=== PATIENT | male | born 1955 | race African-American/Black ===

== ENCOUNTER → 2016-11-27 | Outpatient (CLI) | payer OTHER ==
[~2016-11-27] MED LIST: BACL10TA PO; CEPH500 PO; DOXY100C PO; FURO40 PO; MELO-273 PO; POTA10TA PO; SIMV-260 PO
[2016-11-27 14:04] VITALS: BP 147/79
== END | disposition home or self-care (01) ==
LOC: HBOWC 14:02
PROVIDERS: ATTEND Emergency Medicine
DX: I87.2 Venous insufficiency (chronic) (peripheral) (principal); L97.321 Non-pressure chronic ulcer of left ankle limited to breakdown of skin; I11.0 Hypertensive heart disease with heart failure; I50.9 Heart failure, unspecified; E66.8 Other obesity; L84 Corns and callosities; B35.1 Tinea unguium; M20.42 Other hammer toe(s) (acquired), left foot; M21.42 Flat foot [pes planus] (acquired), left foot; M21.41 Flat foot [pes planus] (acquired), right foot
CPT/HCPCS: 97597

== ENCOUNTER → 2016-12-04 | Outpatient (CLI) | payer OTHER ==
[2016-12-04 13:59] VITALS: BP 128/62
== END | disposition home or self-care (01) ==
LOC: HBOWC 13:52
PROVIDERS: ATTEND Emergency Medicine
DX: I87.2 Venous insufficiency (chronic) (peripheral) (principal); L97.321 Non-pressure chronic ulcer of left ankle limited to breakdown of skin; L84 Corns and callosities; I11.0 Hypertensive heart disease with heart failure; I50.9 Heart failure, unspecified; E66.8 Other obesity; B35.1 Tinea unguium; M21.42 Flat foot [pes planus] (acquired), left foot; M21.41 Flat foot [pes planus] (acquired), right foot

== ENCOUNTER → 2016-12-12 | Outpatient (CLI) | payer OTHER ==
[2016-12-12 09:38] VITALS: BP 144/90
== END | disposition home or self-care (01) ==
LOC: HBOWC 09:08
PROVIDERS: ATTEND Emergency Medicine
DX: I87.2 Venous insufficiency (chronic) (peripheral) (principal); L97.311 Non-pressure chronic ulcer of right ankle limited to breakdown of skin; I10 Essential (primary) hypertension; E66.9 Obesity, unspecified; B35.1 Tinea unguium; L84 Corns and callosities; M20.42 Other hammer toe(s) (acquired), left foot
CPT/HCPCS: 97597

== ENCOUNTER → 2016-12-19 | Outpatient (CLI) | payer OTHER ==
[~2016-12-19] MED LIST changes: +LIDOCAINE HCL 2% 5 ML JELLY TP ONE; +TRIAMCINOLONE 0.1% 15 GM OINTMENT TP ONE
[2016-12-19 15:30] VITALS: BP 130/69
== END | disposition home or self-care (01) ==
LOC: HBOWC 14:53
PROVIDERS: ATTEND Emergency Medicine
DX: I87.2 Venous insufficiency (chronic) (peripheral) (principal); L97.321 Non-pressure chronic ulcer of left ankle limited to breakdown of skin; I10 Essential (primary) hypertension; L84 Corns and callosities; E66.9 Obesity, unspecified; B35.1 Tinea unguium; M21.42 Flat foot [pes planus] (acquired), left foot; M21.41 Flat foot [pes planus] (acquired), right foot
CPT/HCPCS: 97597

== ENCOUNTER → 2017-01-02 | Outpatient (CLI) | payer OTHER ==
[~2017-01-02] MED LIST changes: -TRIAMCINOLONE 0.1% 15 GM OINTMENT TP ONE
[2017-01-02 11:31] VITALS: BP 148/90
== END | disposition home or self-care (01) ==
LOC: HBOWC 11:22
PROVIDERS: ATTEND Emergency Medicine Undersea and Hyperbaric Medicine
DX: I87.2 Venous insufficiency (chronic) (peripheral) (principal); L97.321 Non-pressure chronic ulcer of left ankle limited to breakdown of skin; I11.0 Hypertensive heart disease with heart failure; I50.9 Heart failure, unspecified; I48.91 Unspecified atrial fibrillation; L84 Corns and callosities; B35.1 Tinea unguium; E66.8 Other obesity; M79.675 Pain in left toe(s)
CPT/HCPCS: 11055; 97597

== ENCOUNTER → 2017-02-01 | Outpatient (CLI) | payer OTHER ==
[~2017-02-01] MED LIST changes: -CEPH500 PO; -LIDOCAINE HCL 2% 5 ML JELLY TP ONE; -SIMV-260 PO; +SIMV20 PO
[2017-02-01 10:15] VITALS: BP 149/72
== END | disposition home or self-care (01) ==
LOC: HBOWC 09:59
PROVIDERS: ATTEND Emergency Medicine
DX: I87.2 Venous insufficiency (chronic) (peripheral) (principal); L97.321 Non-pressure chronic ulcer of left ankle limited to breakdown of skin; I11.0 Hypertensive heart disease with heart failure; I50.9 Heart failure, unspecified; E66.8 Other obesity; I48.91 Unspecified atrial fibrillation; L84 Corns and callosities; B35.1 Tinea unguium
CPT/HCPCS: 97597

== ENCOUNTER → 2017-02-15 | Outpatient (CLI) | payer OTHER ==
[~2017-02-15] MED LIST changes: +CEPH500 PO; +SIMV-260 PO; -SIMV20 PO
[2017-02-15 10:19] VITALS: BP 123/71
== END | disposition home or self-care (01) ==
LOC: HBOWC 09:59
PROVIDERS: ATTEND Emergency Medicine
DX: L97.321 Non-pressure chronic ulcer of left ankle limited to breakdown of skin (principal); I48.91 Unspecified atrial fibrillation; L84 Corns and callosities; I11.0 Hypertensive heart disease with heart failure; I50.9 Heart failure, unspecified; E66.8 Other obesity; B35.1 Tinea unguium; I87.2 Venous insufficiency (chronic) (peripheral)
CPT/HCPCS: 97597

== ENCOUNTER → 2017-02-22 | Outpatient (CLI) | payer OTHER ==
[~2017-02-22] MED LIST changes: -CEPH500 PO; -SIMV-260 PO; +SIMV20 PO
[2017-02-22 14:07] VITALS: BP 138/85
== END | disposition home or self-care (01) ==
LOC: HBOWC 13:27
PROVIDERS: ATTEND Emergency Medicine
DX: I87.2 Venous insufficiency (chronic) (peripheral) (principal); L97.321 Non-pressure chronic ulcer of left ankle limited to breakdown of skin; I50.9 Heart failure, unspecified; I11.0 Hypertensive heart disease with heart failure; E66.8 Other obesity; I48.91 Unspecified atrial fibrillation; L84 Corns and callosities; B35.1 Tinea unguium
CPT/HCPCS: 15271; 97597

== ENCOUNTER → 2017-02-28 | Outpatient (CLI) | payer OTHER ==
[~2017-02-28] MED LIST changes: +CEPH500 PO; +SIMV-260 PO; -SIMV20 PO
[2017-02-28 13:47] VITALS: BP 142/77
== END | disposition home or self-care (01) ==
LOC: HBOWC 13:35
PROVIDERS: ATTEND Emergency Medicine
DX: I87.2 Venous insufficiency (chronic) (peripheral) (principal); L97.321 Non-pressure chronic ulcer of left ankle limited to breakdown of skin; L84 Corns and callosities; I11.0 Hypertensive heart disease with heart failure; I50.9 Heart failure, unspecified; E66.9 Obesity, unspecified; I48.91 Unspecified atrial fibrillation; B35.1 Tinea unguium
CPT/HCPCS: 15271

== ENCOUNTER → 2017-03-07 | Outpatient (CLI) | payer OTHER ==
[~2017-03-07] MED LIST changes: -DOXY100C PO
[2017-03-07 15:08] VITALS: BP 140/73
== END | disposition home or self-care (01) ==
LOC: HBOWC 14:37
PROVIDERS: ATTEND Emergency Medicine
DX: I87.2 Venous insufficiency (chronic) (peripheral) (principal); L97.321 Non-pressure chronic ulcer of left ankle limited to breakdown of skin; I11.0 Hypertensive heart disease with heart failure; I50.9 Heart failure, unspecified; E66.8 Other obesity; B35.1 Tinea unguium; I48.91 Unspecified atrial fibrillation; L84 Corns and callosities
CPT/HCPCS: 97597

== ENCOUNTER → 2017-03-14 | Outpatient (CLI) | payer OTHER ==
[2017-03-14 15:08] VITALS: BP 134/78
== END | disposition home or self-care (01) ==
LOC: HBOWC 14:50
PROVIDERS: ATTEND Emergency Medicine
DX: I87.2 Venous insufficiency (chronic) (peripheral) (principal); L97.321 Non-pressure chronic ulcer of left ankle limited to breakdown of skin; L84 Corns and callosities; I48.91 Unspecified atrial fibrillation; I11.0 Hypertensive heart disease with heart failure; I50.9 Heart failure, unspecified; E66.9 Obesity, unspecified
CPT/HCPCS: C5271; Q4172; 15271; 97597

== ENCOUNTER → 2017-03-21 | Outpatient (CLI) | payer OTHER ==
[~2017-03-21] MED LIST changes: +DOXY100C PO
[2017-03-21 15:37] VITALS: BP 120/74
== END | disposition home or self-care (01) ==
LOC: HBOWC 14:43
PROVIDERS: ATTEND Emergency Medicine
DX: I87.2 Venous insufficiency (chronic) (peripheral) (principal); L97.321 Non-pressure chronic ulcer of left ankle limited to breakdown of skin; L84 Corns and callosities; I11.0 Hypertensive heart disease with heart failure; I50.9 Heart failure, unspecified; I48.91 Unspecified atrial fibrillation; E66.9 Obesity, unspecified; B35.1 Tinea unguium

== ENCOUNTER → 2017-03-26 | Outpatient (CLI) | payer OTHER ==
[~2017-03-26] MED LIST changes: -DOXY100C PO
[2017-03-26 16:05] VITALS: BP 133/78
== END | disposition home or self-care (01) ==
LOC: HBOWC 14:38
PROVIDERS: ATTEND Emergency Medicine
DX: I87.2 Venous insufficiency (chronic) (peripheral) (principal); L97.321 Non-pressure chronic ulcer of left ankle limited to breakdown of skin; I11.0 Hypertensive heart disease with heart failure; I50.9 Heart failure, unspecified; E66.9 Obesity, unspecified; B35.1 Tinea unguium; I48.91 Unspecified atrial fibrillation; L84 Corns and callosities

== ENCOUNTER → 2017-04-02 | Outpatient (CLI) | payer OTHER ==
[2017-04-02 11:48] VITALS: BP 117/67
[2017-04-02 11:52] VITALS: BP 117/67
== END | disposition home or self-care (01) ==
LOC: HBOWC 10:53
PROVIDERS: ATTEND Emergency Medicine
DX: I87.2 Venous insufficiency (chronic) (peripheral) (principal); L97.321 Non-pressure chronic ulcer of left ankle limited to breakdown of skin; I11.0 Hypertensive heart disease with heart failure; I50.9 Heart failure, unspecified; L84 Corns and callosities; I48.91 Unspecified atrial fibrillation; E66.8 Other obesity; B35.1 Tinea unguium
CPT/HCPCS: C5271; Q4172

== ENCOUNTER → 2017-04-09 | Outpatient (CLI) | payer OTHER ==
[2017-04-09 11:41] VITALS: BP 120/75
== END | disposition home or self-care (01) ==
LOC: HBOWC 10:59
PROVIDERS: ATTEND Emergency Medicine Undersea and Hyperbaric Medicine
DX: I87.2 Venous insufficiency (chronic) (peripheral) (principal); L97.321 Non-pressure chronic ulcer of left ankle limited to breakdown of skin; I11.0 Hypertensive heart disease with heart failure; I50.9 Heart failure, unspecified; I48.91 Unspecified atrial fibrillation; E66.9 Obesity, unspecified; L84 Corns and callosities; B35.1 Tinea unguium

== ENCOUNTER → 2017-04-17 | Outpatient (CLI) | payer OTHER ==
[~2017-04-17] MED LIST changes: +CIPR-278 PO
[2017-04-17 09:16] VITALS: BP 133/78
== END | disposition home or self-care (01) ==
LOC: HBOWC 08:59
PROVIDERS: ATTEND Emergency Medicine
DX: I87.2 Venous insufficiency (chronic) (peripheral) (principal); L97.321 Non-pressure chronic ulcer of left ankle limited to breakdown of skin; I11.0 Hypertensive heart disease with heart failure; I50.9 Heart failure, unspecified; E66.9 Obesity, unspecified; B35.1 Tinea unguium; I48.91 Unspecified atrial fibrillation; L84 Corns and callosities
CPT/HCPCS: C5271; Q4172

== ENCOUNTER → 2017-04-26 | Outpatient (CLI) | payer OTHER ==
[~2017-04-26] MED LIST changes: +DOXY100C PO; +ENAL10 PO; +SULF-168 PO; +SULF1TAB42 PO; +TYL3 PO
[2017-04-26 09:31] VITALS: BP 133/74
== END | disposition home or self-care (01) ==
LOC: HBOWC 09:06
PROVIDERS: ATTEND Emergency Medicine
DX: I87.2 Venous insufficiency (chronic) (peripheral) (principal); L97.321 Non-pressure chronic ulcer of left ankle limited to breakdown of skin; L84 Corns and callosities; I11.0 Hypertensive heart disease with heart failure; I50.9 Heart failure, unspecified; E66.9 Obesity, unspecified; B35.1 Tinea unguium; I48.91 Unspecified atrial fibrillation

== ENCOUNTER → 2017-05-15 | Outpatient (CLI) | payer OTHER ==
[~2017-05-15] MED LIST changes: -CEPH500 PO; +DICL250 PO; -DOXY100C PO; -ENAL10 PO; -SULF-168 PO; -SULF1TAB42 PO; +TRIAMCINOLONE 0.1% 15 GM CREAM TP ONE; -TYL3 PO
[2017-05-15 10:42] VITALS: BP 146/72
== END | disposition home or self-care (01) ==
LOC: HBOWC 09:53
PROVIDERS: ATTEND Emergency Medicine
DX: I87.2 Venous insufficiency (chronic) (peripheral) (principal); L97.321 Non-pressure chronic ulcer of left ankle limited to breakdown of skin; L84 Corns and callosities; I11.0 Hypertensive heart disease with heart failure; I50.9 Heart failure, unspecified; E66.9 Obesity, unspecified; B35.1 Tinea unguium; I48.91 Unspecified atrial fibrillation
CPT/HCPCS: 97597

== ENCOUNTER → 2017-05-22 | Outpatient (CLI) | payer OTHER ==
[~2017-05-22] MED LIST changes: -CIPR-278 PO; -TRIAMCINOLONE 0.1% 15 GM CREAM TP ONE
[2017-05-22 10:39] VITALS: BP 142/92
== END | disposition home or self-care (01) ==
LOC: HBOWC 10:18
PROVIDERS: ATTEND Emergency Medicine
DX: I87.2 Venous insufficiency (chronic) (peripheral) (principal); L97.321 Non-pressure chronic ulcer of left ankle limited to breakdown of skin; L84 Corns and callosities; I11.0 Hypertensive heart disease with heart failure; I50.9 Heart failure, unspecified; E66.9 Obesity, unspecified; B35.1 Tinea unguium; I48.91 Unspecified atrial fibrillation
CPT/HCPCS: 97597

== ENCOUNTER → 2017-05-29 | Outpatient (CLI) | payer OTHER ==
[2017-05-29 12:33] VITALS: BP 139/66
== END | disposition home or self-care (01) ==
LOC: HBOWC 10:56
PROVIDERS: ATTEND Emergency Medicine
DX: I87.2 Venous insufficiency (chronic) (peripheral) (principal); L97.321 Non-pressure chronic ulcer of left ankle limited to breakdown of skin; L84 Corns and callosities; I11.0 Hypertensive heart disease with heart failure; I50.9 Heart failure, unspecified; E66.9 Obesity, unspecified; B35.1 Tinea unguium; I48.91 Unspecified atrial fibrillation
CPT/HCPCS: 15271; Q4172

== ENCOUNTER → 2017-06-05 | Outpatient (CLI) | payer OTHER ==
[2017-06-05 12:02] VITALS: BP 119/68
== END | disposition home or self-care (01) ==
LOC: HBOWC 10:34
PROVIDERS: ATTEND Emergency Medicine
DX: I87.2 Venous insufficiency (chronic) (peripheral) (principal); L97.321 Non-pressure chronic ulcer of left ankle limited to breakdown of skin; I11.0 Hypertensive heart disease with heart failure; I50.9 Heart failure, unspecified; E66.9 Obesity, unspecified; I48.91 Unspecified atrial fibrillation; L84 Corns and callosities; M21.42 Flat foot [pes planus] (acquired), left foot; M21.41 Flat foot [pes planus] (acquired), right foot

== ENCOUNTER → 2017-06-12 | Outpatient (CLI) | payer OTHER ==
[2017-06-12 14:06] VITALS: BP 126/59
== END | disposition home or self-care (01) ==
LOC: HBOWC 13:42
PROVIDERS: ATTEND Emergency Medicine
DX: L97.321 Non-pressure chronic ulcer of left ankle limited to breakdown of skin (principal); I87.2 Venous insufficiency (chronic) (peripheral); L30.9 Dermatitis, unspecified; I11.0 Hypertensive heart disease with heart failure; I50.9 Heart failure, unspecified; L84 Corns and callosities; M21.42 Flat foot [pes planus] (acquired), left foot; M21.41 Flat foot [pes planus] (acquired), right foot; E66.9 Obesity, unspecified; Z68.1 Body mass index [BMI] 19.9 or less, adult; I48.91 Unspecified atrial fibrillation; B35.1 Tinea unguium
CPT/HCPCS: 15271; Q4172

== ENCOUNTER → 2017-06-19 | Outpatient (CLI) | payer OTHER ==
[2017-06-19 09:50] VITALS: BP 141/78
== END | disposition home or self-care (01) ==
LOC: HBOWC 09:05
PROVIDERS: ATTEND Emergency Medicine
DX: I87.2 Venous insufficiency (chronic) (peripheral) (principal); L97.821 Non-pressure chronic ulcer of other part of left lower leg limited to breakdown of skin; L84 Corns and callosities; I11.0 Hypertensive heart disease with heart failure; I50.9 Heart failure, unspecified; E66.9 Obesity, unspecified; B35.1 Tinea unguium; I48.91 Unspecified atrial fibrillation; Z68.1 Body mass index [BMI] 19.9 or less, adult

== ENCOUNTER → 2017-07-10 | Outpatient (CLI) | payer OTHER ==
[~2017-07-10] MED LIST changes: +LIDOCAINE HCL 2% 5 ML JELLY TP ONE; +MELO-107 PO; -MELO-273 PO
[2017-07-10 11:33] VITALS: BP 135/82
== END | disposition home or self-care (01) ==
LOC: HBOWC 10:55
PROVIDERS: ATTEND Emergency Medicine
DX: I87.2 Venous insufficiency (chronic) (peripheral) (principal); L97.321 Non-pressure chronic ulcer of left ankle limited to breakdown of skin; L84 Corns and callosities; E66.9 Obesity, unspecified; I11.0 Hypertensive heart disease with heart failure; I50.9 Heart failure, unspecified; B35.1 Tinea unguium; I48.91 Unspecified atrial fibrillation; Z68.1 Body mass index [BMI] 19.9 or less, adult
CPT/HCPCS: 11042

== ENCOUNTER → 2017-07-20 | Outpatient (CLI) | payer OTHER ==
[2017-07-20 11:30] VITALS: BP 146/92
== END | disposition home or self-care (01) ==
LOC: HBOWC 10:49
PROVIDERS: ATTEND Emergency Medicine
DX: S91.002D Unspecified open wound, left ankle, subsequent encounter (principal); I87.8 Other specified disorders of veins; I11.0 Hypertensive heart disease with heart failure; I50.9 Heart failure, unspecified; E66.9 Obesity, unspecified; I48.91 Unspecified atrial fibrillation; Z68.1 Body mass index [BMI] 19.9 or less, adult; X58.XXXD Exposure to other specified factors, subsequent encounter
CPT/HCPCS: 97597

== ENCOUNTER → 2017-07-31 | Outpatient (CLI) | payer OTHER ==
[2017-07-31 10:15] VITALS: BP 149/77
== END | disposition home or self-care (01) ==
LOC: HBOWC 09:50
PROVIDERS: ATTEND Emergency Medicine
DX: I87.2 Venous insufficiency (chronic) (peripheral) (principal); L97.321 Non-pressure chronic ulcer of left ankle limited to breakdown of skin; I11.0 Hypertensive heart disease with heart failure; I50.9 Heart failure, unspecified; E66.9 Obesity, unspecified; I48.91 Unspecified atrial fibrillation; L84 Corns and callosities; B35.1 Tinea unguium; Z68.1 Body mass index [BMI] 19.9 or less, adult
CPT/HCPCS: 11042

== ENCOUNTER → 2017-08-14 | Outpatient (CLI) | payer OTHER ==
[~2017-08-14] MED LIST changes: -LIDOCAINE HCL 2% 5 ML JELLY TP ONE
[2017-08-14 10:52] VITALS: BP 131/77
== END | disposition home or self-care (01) ==
LOC: HBOWC 10:06
PROVIDERS: ATTEND Emergency Medicine
DX: I87.2 Venous insufficiency (chronic) (peripheral) (principal); L97.321 Non-pressure chronic ulcer of left ankle limited to breakdown of skin; I11.0 Hypertensive heart disease with heart failure; I50.9 Heart failure, unspecified; I48.91 Unspecified atrial fibrillation; E66.9 Obesity, unspecified; Z68.1 Body mass index [BMI] 19.9 or less, adult

== ENCOUNTER → 2018-06-03 | Outpatient (CLI) | payer OTHER ==
[~2018-06-03] MED LIST changes: +INDO50 PO
[2018-06-03 11:28] VITALS: BP 153/90
== END | disposition home or self-care (01) ==
LOC: HBOWC 11:03
PROVIDERS: ATTEND Surgery Plastic and Reconstructive Surgery
DX: L97.321 Non-pressure chronic ulcer of left ankle limited to breakdown of skin (principal); I87.2 Venous insufficiency (chronic) (peripheral); I11.0 Hypertensive heart disease with heart failure; I50.9 Heart failure, unspecified; I48.91 Unspecified atrial fibrillation; E66.9 Obesity, unspecified; Z68.1 Body mass index [BMI] 19.9 or less, adult
CPT/HCPCS: 11042

== ENCOUNTER → 2018-06-10 | Outpatient (CLI) | payer OTHER ==
[~2018-06-10] MED LIST changes: -BACL10TA PO; -DICL250 PO; -MELO-107 PO; -SIMV-260 PO
[2018-06-10 10:49] VITALS: BP 125/79
== END | disposition home or self-care (01) ==
LOC: HBOWC 10:31
PROVIDERS: ATTEND Surgery Plastic and Reconstructive Surgery
DX: L97.321 Non-pressure chronic ulcer of left ankle limited to breakdown of skin (principal); I87.2 Venous insufficiency (chronic) (peripheral); I11.0 Hypertensive heart disease with heart failure; I50.9 Heart failure, unspecified; I48.91 Unspecified atrial fibrillation; E66.9 Obesity, unspecified; Z68.1 Body mass index [BMI] 19.9 or less, adult
CPT/HCPCS: 11043

== ENCOUNTER → 2018-06-17 | Outpatient (CLI) | payer OTHER ==
[~2018-06-17] MED LIST changes: +LIDOCAINE HCL 2% 5 ML JELLY TP ONE
[2018-06-17 10:21] VITALS: BP 149/93
== END | disposition home or self-care (01) ==
LOC: HBOWC 10:10
PROVIDERS: ATTEND Surgery Plastic and Reconstructive Surgery
DX: L97.321 Non-pressure chronic ulcer of left ankle limited to breakdown of skin (principal); I87.2 Venous insufficiency (chronic) (peripheral); I11.0 Hypertensive heart disease with heart failure; I50.9 Heart failure, unspecified; I48.91 Unspecified atrial fibrillation; E66.9 Obesity, unspecified; Z68.1 Body mass index [BMI] 19.9 or less, adult
CPT/HCPCS: 11043

== ENCOUNTER → 2018-07-01 | Outpatient (CLI) | payer OTHER ==
[~2018-07-01] MED LIST changes: +LIDOCAINE 2% 5 ML JELLY TP ONE; -LIDOCAINE HCL 2% 5 ML JELLY TP ONE
[2018-07-01 10:24] VITALS: BP 143/77
== END | disposition home or self-care (01) ==
LOC: HBOWC 10:13
PROVIDERS: ATTEND Surgery Plastic and Reconstructive Surgery
DX: L97.321 Non-pressure chronic ulcer of left ankle limited to breakdown of skin (principal); I87.2 Venous insufficiency (chronic) (peripheral); I11.0 Hypertensive heart disease with heart failure; I50.9 Heart failure, unspecified; I48.91 Unspecified atrial fibrillation; E66.9 Obesity, unspecified; Z68.1 Body mass index [BMI] 19.9 or less, adult
CPT/HCPCS: 11043

== ENCOUNTER → 2018-07-08 | Outpatient (CLI) | payer OTHER ==
[2018-07-08 10:31] VITALS: BP 144/87
== END | disposition home or self-care (01) ==
LOC: HBOWC 10:08
PROVIDERS: ATTEND Surgery Plastic and Reconstructive Surgery
DX: L97.321 Non-pressure chronic ulcer of left ankle limited to breakdown of skin (principal); I87.2 Venous insufficiency (chronic) (peripheral); I11.0 Hypertensive heart disease with heart failure; I50.9 Heart failure, unspecified; I48.91 Unspecified atrial fibrillation; E66.9 Obesity, unspecified; Z68.1 Body mass index [BMI] 19.9 or less, adult
CPT/HCPCS: 11043

== ENCOUNTER → 2018-07-15 | Outpatient (CLI) | payer OTHER ==
[~2018-07-15] MED LIST changes: +LIDOCAINE 2% 5 ML JELLY ONE; -LIDOCAINE 2% 5 ML JELLY TP ONE
[2018-07-15 11:15] VITALS: BP 135/92
== END | disposition home or self-care (01) ==
LOC: HBOWC 11:04
PROVIDERS: ATTEND Surgery Plastic and Reconstructive Surgery
DX: L97.321 Non-pressure chronic ulcer of left ankle limited to breakdown of skin (principal); I11.0 Hypertensive heart disease with heart failure; I50.9 Heart failure, unspecified; I87.2 Venous insufficiency (chronic) (peripheral); E66.9 Obesity, unspecified; I48.91 Unspecified atrial fibrillation; Z68.1 Body mass index [BMI] 19.9 or less, adult
CPT/HCPCS: 11043

== ENCOUNTER → 2018-07-22 | Outpatient (CLI) | payer OTHER ==
[~2018-07-22] MED LIST changes: -LIDOCAINE 2% 5 ML JELLY ONE
[2018-07-22 11:20] VITALS: BP 146/90
== END | disposition home or self-care (01) ==
LOC: HBOWC 10:00
PROVIDERS: ATTEND Surgery Plastic and Reconstructive Surgery
DX: L97.321 Non-pressure chronic ulcer of left ankle limited to breakdown of skin (principal); I87.2 Venous insufficiency (chronic) (peripheral); I11.0 Hypertensive heart disease with heart failure; I50.9 Heart failure, unspecified; I48.91 Unspecified atrial fibrillation; E66.9 Obesity, unspecified; Z68.1 Body mass index [BMI] 19.9 or less, adult
CPT/HCPCS: 11043

== ENCOUNTER → 2018-07-29 | Outpatient (CLI) | payer OTHER ==
[2018-07-29 12:15] VITALS: BP 142/58
== END | disposition home or self-care (01) ==
LOC: HBOWC 09:57
PROVIDERS: ATTEND Surgery Plastic and Reconstructive Surgery
DX: L97.321 Non-pressure chronic ulcer of left ankle limited to breakdown of skin (principal); I87.2 Venous insufficiency (chronic) (peripheral); I11.0 Hypertensive heart disease with heart failure; I50.9 Heart failure, unspecified; I48.91 Unspecified atrial fibrillation; E66.9 Obesity, unspecified; Z68.1 Body mass index [BMI] 19.9 or less, adult
CPT/HCPCS: 11042; 11043

== ENCOUNTER → 2018-08-07 | Outpatient (CLI) | payer OTHER ==
[~2018-08-07] MED LIST changes: +LIDOCAINE 2% 5 ML JELLY TP ONE
[2018-08-07 10:10] VITALS: BP 136/88
== END | disposition home or self-care (01) ==
LOC: HBOWC 09:56
PROVIDERS: ATTEND Internal Medicine
DX: L97.321 Non-pressure chronic ulcer of left ankle limited to breakdown of skin (principal); I87.2 Venous insufficiency (chronic) (peripheral); I11.0 Hypertensive heart disease with heart failure; I50.9 Heart failure, unspecified; I48.91 Unspecified atrial fibrillation; E66.9 Obesity, unspecified; Z68.1 Body mass index [BMI] 19.9 or less, adult
CPT/HCPCS: 11042

== ENCOUNTER → 2018-08-12 | Outpatient (CLI) | payer OTHER ==
[2018-08-12 10:20] VITALS: BP 138/77
== END | disposition home or self-care (01) ==
LOC: HBOWC 10:07
PROVIDERS: ATTEND Surgery Plastic and Reconstructive Surgery
DX: L97.321 Non-pressure chronic ulcer of left ankle limited to breakdown of skin (principal); I87.2 Venous insufficiency (chronic) (peripheral); I11.0 Hypertensive heart disease with heart failure; I50.9 Heart failure, unspecified; I48.91 Unspecified atrial fibrillation; E66.9 Obesity, unspecified; Z68.1 Body mass index [BMI] 19.9 or less, adult
CPT/HCPCS: 11043

== ENCOUNTER → 2018-08-19 | Outpatient (CLI) | payer OTHER ==
[~2018-08-19] MED LIST changes: -LIDOCAINE 2% 5 ML JELLY TP ONE
[2018-08-19 11:01] VITALS: BP 138/94
== END | disposition home or self-care (01) ==
LOC: HBOWC 10:17
PROVIDERS: ATTEND Surgery Plastic and Reconstructive Surgery
DX: I83.023 Varicose veins of left lower extremity with ulcer of ankle (principal); L97.321 Non-pressure chronic ulcer of left ankle limited to breakdown of skin; I11.0 Hypertensive heart disease with heart failure; I50.9 Heart failure, unspecified; I87.2 Venous insufficiency (chronic) (peripheral); I48.91 Unspecified atrial fibrillation; E66.9 Obesity, unspecified; Z68.1 Body mass index [BMI] 19.9 or less, adult
CPT/HCPCS: 11043

== ENCOUNTER → 2018-08-26 | Outpatient (CLI) | payer OTHER ==
[~2018-08-26] MED LIST changes: +LIDOCAINE 2% 5 ML JELLY TP ONE
[2018-08-26 09:59] VITALS: BP 139/90
== END | disposition home or self-care (01) ==
LOC: HBOWC 09:38
PROVIDERS: ATTEND Surgery Plastic and Reconstructive Surgery
DX: L97.321 Non-pressure chronic ulcer of left ankle limited to breakdown of skin (principal); I87.2 Venous insufficiency (chronic) (peripheral); I11.0 Hypertensive heart disease with heart failure; I50.9 Heart failure, unspecified; I48.91 Unspecified atrial fibrillation; E66.9 Obesity, unspecified; Z98.1 Arthrodesis status
CPT/HCPCS: 11043

== ENCOUNTER → 2018-09-02 | Outpatient (CLI) | payer OTHER ==
[~2018-09-02] MED LIST changes: -LIDOCAINE 2% 5 ML JELLY TP ONE
[2018-09-02 10:21] VITALS: BP 144/78
== END | disposition home or self-care (01) ==
LOC: HBOWC 09:58
PROVIDERS: ATTEND Surgery Plastic and Reconstructive Surgery
DX: I83.023 Varicose veins of left lower extremity with ulcer of ankle (principal); L97.325 Non-pressure chronic ulcer of left ankle with muscle involvement without evidence of necrosis; I11.0 Hypertensive heart disease with heart failure; I50.9 Heart failure, unspecified; I87.2 Venous insufficiency (chronic) (peripheral); E66.9 Obesity, unspecified; I48.91 Unspecified atrial fibrillation; Z68.1 Body mass index [BMI] 19.9 or less, adult; Z98.1 Arthrodesis status
CPT/HCPCS: 11043

== ENCOUNTER → 2018-09-09 | Outpatient (CLI) | payer OTHER ==
[~2018-09-09] MED LIST changes: +LIDOCAINE 2% 5 ML JELLY TP ONE
[2018-09-09 10:10] VITALS: BP 147/74
== END | disposition home or self-care (01) ==
LOC: HBOWC 10:02
PROVIDERS: ATTEND Surgery Plastic and Reconstructive Surgery
DX: I83.023 Varicose veins of left lower extremity with ulcer of ankle (principal); L97.325 Non-pressure chronic ulcer of left ankle with muscle involvement without evidence of necrosis; I11.0 Hypertensive heart disease with heart failure; I50.9 Heart failure, unspecified; I87.2 Venous insufficiency (chronic) (peripheral); E66.9 Obesity, unspecified; Z68.1 Body mass index [BMI] 19.9 or less, adult; I48.91 Unspecified atrial fibrillation
CPT/HCPCS: 11043

== ENCOUNTER → 2018-09-16 | Outpatient (CLI) | payer OTHER ==
[~2018-09-16] MED LIST changes: -LIDOCAINE 2% 5 ML JELLY TP ONE
[2018-09-16 10:39] VITALS: BP 149/89
== END | disposition home or self-care (01) ==
LOC: HBOWC 10:18
PROVIDERS: ATTEND Surgery Plastic and Reconstructive Surgery
DX: I83.023 Varicose veins of left lower extremity with ulcer of ankle (principal); L97.325 Non-pressure chronic ulcer of left ankle with muscle involvement without evidence of necrosis; I11.0 Hypertensive heart disease with heart failure; I50.9 Heart failure, unspecified; I87.2 Venous insufficiency (chronic) (peripheral); I48.91 Unspecified atrial fibrillation; E66.9 Obesity, unspecified; Z68.1 Body mass index [BMI] 19.9 or less, adult; Z98.1 Arthrodesis status
CPT/HCPCS: 11043